=== PATIENT | female | born 1990 | race American Indian/Alaskan Native ===

== ENCOUNTER 2023-08-04 01:44 | Outpatient (CLI) | payer BC, OTHER | END 2023-08-04 23:59 | disposition critical access hospital (66) | LOC: EMS 01:44 | DX: R06.02 Shortness of breath (principal); R05.9 Cough, unspecified; R09.3 Abnormal sputum | CPT/HCPCS: A0425; A0429 ==

== ENCOUNTER 2023-08-04 02:22 | Emergency (ER) | payer BC, OTHER ==
--- NOTE | 2023-08-04 02:56 | ED Physician Documentation ---
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 Sent tonight to [facility] ED for dyspnea , cough. Patient says she has had dyspnea, wheezing, cough x 1 month. The cough is productive but uncertain how long the cough has been productive (she recalls it was initially dry cough). Denies h/o similar symptoms, denies pulmonary diagn oses such as COPD, asthma. Review of Systems Constitutional: reports: Reviewed and negative Cardiac: reports: Reviewed and negative Respiratory: reports: Dyspnea, Cough, Wheezing. denies: Hemoptysis GI: reports: Reviewed and negative PD PAST MEDICAL HISTORY - Past Medical History Past Medical History: No - Present Medications Home Medications: Ambulatory Orders Medication Instructions Recorded Confirmed Albuterol Sulf [Ventolin Hfa 1 - 2 puffs INH Q4HR PRN #18 gm 08/04/23 Inhaler] predniSONE [Deltasone] 40 mg PO DAILY 4 Days #8 tablet 08/04/23 - Allergies Allergies/Adverse Reactions: Allergies Allergy/AdvReac Type Severity Reaction Status Date / Time No Known Drug Allergies Allergy Verified 08/04/23 02:29 PD ED PE NORMAL - Vitals Vital signs reviewed: Yes - General General: Alert and oriented X 3, No acute distress, Well developed/nourished - Cardiac Cardiac: RRR, No murmur - Respiratory Respiratory: No respiratory distress PD ED PE EXPANDED - Respiratory Respiratory: Wheezing, Decreased breath sounds, Other (inspiratory and expiratory wheezing all lung levin with diffusely decreased breath sounds) Results - Vitals Vitals: Vital Signs - 24 hr 08/04/23 08/04/23 08/04/23 03:28 03:52 04:31 Heart Rate 81 74 85 Respiratory 16 16 16 Rate Blood Pressure 98/64 100/65 O2 Saturation 91 L 96 If not protocol 2 1 : Oxygen Flow, liters/minute 08/04/23 08/04/23 05:20 05:22 Heart Rate 89 82 Respiratory 16 16 Rate Blood Pressure 99/63 O2 Saturation 97 If not protocol 1 6 : Oxygen Flow, liters/minute Oxygen O2 Source Neb Tx Oxygen Flow Rate 2 - Rads (name of study) chest xray Relevant Findings:: Prelim report reviewed, EMP independent interpretation of test (I reviewed these images and my interpreation is no acute cardiopulmonary disease), See rad report PD Medical Decision Making - ED course Complexity details: reviewed results, re-evaluated patient, considered differential, d/w patient ED course: Given duoneb followed by albuterol neb in ED, as well as 10mg PO decadron. On reevaluation, she is sleeping in NAD, only 1 L/min NC oxygen and pulse ox 89- 90%. She awakens easily to voice, asked to take deep breaths and with first deep inspiration, pulse ox rapidly increases to mid-90s% with good pleth. She denies feeling short of breath. Results of CXR d/w patient. Nasal swab not performed, as patient says she had COVID swab yesterday as part of intake for [facility] with negative result. I am providing prescriptions for four days of QD prednisone as well as albuterol MDI. Return precautions discussed. I discussed her case with RN at [facility], and they will arrange for transfer back to [facility]. Departure - Departure Disposition: 01 Home, Self Care Clinical Impression: Bronchitis with bronchospasm Condition: Good Instructions: ED Bronchitis Asthmatic Follow-Up: Charu Pate MD [Primary Care Provider] - Within 1 week Prescriptions: Albuterol Sulf [Ventolin Hfa Inhaler] 1 - 2 puffs INH Q4HR PRN #18 gm PRN Reason: Shortness Of Air/Wheezing predniSONE [Deltasone] 40 mg PO DAILY 4 Days #8 tablet Comments: There were no abnormalities on tonight's chest x-ray. Based on the wet cough that you have been having, combined with the shortness of breath and the wheezing on my stethoscopic exam, I suspect that you have bronchitis ("chest cold") with bronchospasm. Bronchospasm is a constriction of the airways of the lungs, causing shortness of breath and wheezing (much like an asthmatic having an asthma attack). You were given two "breathing treatments" in the emergency department, and I am providing you with a prescription for an inhaler for albuterol. The albuterol can be used every 4 hours (2 puffs) as needed for shortness of breath. You were also given a dose of steroid orally (Decadron). The steroid acts as an anti-inflammatory; it takes several hours to start to have an effect, but it should reduce the inflammation in the lungs, gradually making it easier to breathe. I am providing you with a prescription for a 4-day course of daily steroid. Forms: PCP List Discharge Date/Time: 08/04/23 07:00
[2023-08-04] MEDS ORDERED: IPRATROPIUM/ALBUTEROL 3 ML NEB INH STA (03:25)
[2023-08-04] MEDS ORDERED: ALBUTEROL NEB 2.5 MG/3 ML INH STA (05:05)
[2023-08-04 05:29] VITALS: BP 99/63; O2SAT 97
[2023-08-04] MEDS ORDERED: DEXAMETHASONE 10 MG/ML VIAL PO STA (05:49)
[2023-08-04] MEDS ORDERED: CHERRY SYRUP 10 ML UDC PO ONE (05:49)
--- NOTE | 2023-08-04 08:49 | XRAY Report ---
PROCEDURE: Chest 2 View X-Ray INDICATIONS: cough, wheezing, hypoxia TECHNIQUE: 2 views of the chest were acquired. COMPARISON: None. FINDINGS: Surgical changes and devices: None. Lungs and pleura: No pleural effusions or pneumothorax. Lungs are clear. Mediastinum: Mediastinal contours appear normal. Heart size is normal. Bones and chest wall: No suspicious bony lesions. Overlying soft tissues appear unremarkable. IMPRESSION: No acute cardiopulmonary process. No focal infiltrates are seen. Note: No significant discrepancy from the preliminary report. Reviewed by: Adrian Banegas MD on 08/04/2023 7:47 AM JULIANNE Approved by: Adrian Banegas MD on 08/04/2023 7:47 AM JULIANNE Station ID: [id number]
== END 2023-08-04 07:00 | disposition home or self-care (01) ==
LOC: ED 02:22
DX: J40 Bronchitis, not specified as acute or chronic (principal)
CPT/HCPCS: 71046; 94640; 94664; 99284; A9270